=== PATIENT | female | born 2000 ===

== ENCOUNTER 2024-11-14 08:22 | Outpatient (CLI) | payer OTHER, SELFPAY ==
--- OUTSIDE RECORDS SUMMARY | 2024-11-14 08:27 | XMS_ITS ---
Author Organization [facility] Address [address] [place] [address] Care Team Providers Care Chha Name Role Phone Jorge Jesus Primary Care Provider Pascual Lang Unavailable [phone] Reason For Referral Reason IRON DEFICIENCY THAT DID NOT RESPOND TO PO IRON, NO HX OF BLEEDING, DID WELL WITH IRON INFUSIONS Diagnosis 1 Iron deficiency (E61 .1) Referral Organization [facility] Referring Provider First Name Pascual Referring Provider Last Name Mary Referring Provider Speciality Internal M edicine Referred Provider Specialty Hematology Referral Priority Routine REASON FOR VISIT 6 week f/u, last seen 10/04/24 Medications Medication SIG (Take, Route, Frequency, Duration) Notes Start Date End Date Status cloNIDine HCl 0.2 MG 1 tablet at bedtime Orally Once a day; Duration: 30 days Active busPIRone HCl 7.5 MG 1 tablet Orally Twi ce a day; Duration: 30 days Active DULoxetine HCl 30 MG 1 capsule Orally On ce a day; Duration: 30 days Active QUEtiapine Fumarate 150 MG 1 tablet at bedtime Orally Once a day; Duration: 30 days Active Pregabalin 75 MG 1 capsule Orally twi ce a day; Duration: 30 days 11/13/2024 Active traMADol HCl 50 MG 1 tablet as needed Orally Once a day; Duration: 6 days As needed severe pain, no more than one tab per day and 6 tabs per month 10/04/2024 Active Plaquenil 200 MG 1 tablet Orally twic e a day; Duration: 30 days Active Methocarbamol 500 MG 1.5 tablets Orally every 6 hours; Duration: 30 days As needed fibromyalgia Active predniSONE 2.5 MG 1 tablet with food o r milk Orally every other day; Duration: 30 days Active SEROquel 100 MG 1.5 tablet Orally On ce a day; Duration: 12 days Active Enbrel 50 MG/ML as directed Subcutaneous Not-Taking ARIPiprazole 10 MG TAKE 1 TABLET BY SIMA TH DAILY; Duration: 30 Active Social History Tobacco Use: Social History Observation Description Date Details (start date - stop date) Never Smoker NA - NA Sex Assigned At : Social History Observation Description Sex Assigned At Female Tobacco Control (Standard) Question Answer Notes Tobacco use: Nonsmoker Vital Signs Weight 219.4 lbs 11/13/2024 Height 67 in 11/13/2024 BMI 34.36 kg/m2 11/13/2024 Blood pressure systolic 138 mm Hg 11/14/19 25 Blood pressure diastolic 84 mm Hg 025 Heart Rate 111 /min 11/13/2024 Oximetry 99 % 11/13/2024 Temperature 98.4 degrees Fahrenheit 11/14/19 25 Respiratory Rate 20 /min 11/13/2024 Encounters Encounter Location Date Provider Diagnosis [place] [place] [place] [address] 11/13/2024 Pascual Lang Sleep apnea in adult G47.33 ; Iron deficiency E61.1 ; Fibromyalgia M79.7 ; Rheumatoid arthritis M06.9 ; Major depression F32.9 and Over weight E66.3 Assessments Encounter Date Diagnosis (ICD Code) Assessment Notes Treatment Notes Treatment Clinical Notes Section Notes 11/13/2024 Sleep apnea in adult (ICD-10 - G47.33) 11/13/2024 Iron deficiency (ICD-10 - E61.1) 11/13/2024 Fibromyalgia (ICD-10 - M79.7) DISCUSSED DIET, LOW IMPACT EXERCISE 11/13/2024 Rheumatoid arthritis (ICD-10 - M06.9) HX OF SERONEGATIVE DISEASE, RHEUM CONSULT PENDING, GAVE HER NUMBER TO CALL TODAY 11/13/2024 Major depression (ICD-10 - F32.9) 11/13/2024 Over weight (ICD-10 - E66.3) Plan Of Treatment Medication Medication Name Sig Start Date Stop Date Notes Pregabalin 75 MG 1 capsule Orally twi ce a day; Duration: 30 days 11/13/2024 Plaquenil 200 MG 1 tablet Orally twic e a day; Duration: 30 days Methocarbamol 500 MG 1.5 tablets Orally every 6 hours; Duration: 30 days predniSONE 2.5 MG 1 tablet with food o r milk Orally every other day; Duration: 30 days Future Test Test Name Order Date Celiac Antibodies tTG IgA, MATIAS IgA, Tota l IgA w/reflex to tTG IgG 01/14/2025 H. pylori Stool Ag, EIA 01/14/2025 Iron and TIBC* 01/14/2025 Ferritin, Serum* 01/14/2025 CMP 14 Comprehensive Metabolic Panel* Referrals Referral Date Details 11/13/2024 11/13/2024, IRON DEF ICIENCY THAT DID NOT RESPOND TO PO IRON, NO HX OF BLEEDING, DID WELL WITH IRON INFUSIONS Next Appt Details Follow Up: 2 Months, Reason: IRON, JEANINE, FM Progress Notes * Ximena LANGhDOB:[birth year] (24 yo F)Acc No.[id number]:11/13/2024 Progress Notes Patient: Miladys NARAYANANTanya Provider: Slava Lang :2000 A ge:24 Y S ex:Female(T) Date:11/13/2024 Address:[address] [place] [address] , [place] [address] Pcp:Jorge Jesus Subjective: * Chief Complaints: * 6 week f/u, last seen 10/04/24 * HPI: I nterim History: Emergency room visit N o. Was hospitalized N o. DISCUSSED LABS. HX IRON DEFICIENCY. NO RESPONSE TO ORAL IRON. DID WELL WITH IRON INFUSIONS. SLEEP STUDY SET FOR TOMORROW. NEVER GOT CALL FROM RHEUM. HX SERONEGATIVE RHEUMATOID ARTHRITIS. DISCUSSED THAT ALL MARKERS WERE WNL ON LABS. D epression Screening: PHQ-9 L ittle interest or pleasure in doing things?More than half the days F eeling down, depressed, or hopeless M ore than half the days T rouble falling or staying asleep, or sleeping too much M ore than half the days F eeling tired or having little energy N early every day P oor appetite or overeating S everal days F eeling bad about yourself or that you are a failure, or have let yourself or your family down N early every day T rouble concentrating on things, such as reading the newspaper or watching television M ore than half the days M oving or speaking so slowly that other people could have noticed; or the opposite, being so fidgety or restless that you have been moving around a lot more than usual S everal days T houghts that you would be better off or of hurting yourself in some way N ot at all Intervention D epression Screening Findings P ositive F ollow-Up for Depression P atient refused intervention P reventative Health and Wellness follow-up: Action Plans for Clinical Quality Measures: B reast Cancer Screening: N ot addressed during this visit. See notes for details. C ervical Cancer Screening: N ot addressed during this visit. See notes for details. C olorectal Cancer Screening: N ot addressed during this visit. See notes for details. H IV Screening: N ot addressed during this visit. See notes for details. T obacco Screening and Cessation: N ot addressed during this visit. See notes for details. . C SSRS Interpretation and Follow Up Plan: CSSRS Interpretation and Follow Up Plan C SSRS Screen documented using SF Y es R isk Disposition from SF L ow - No Follow Up Plan Required F ollow Up Plan N o Follow Up Plan required at this time. T imeframe of Screening T cesar * ROS: B asic ROS: Weight loss A dmits. * Medical History: * Surgical History: N o Surgical History documented. * Hospitalization/Major Diagno stic Procedure: M ental health as teen * Family History: F ather: alive. M other: alive. 1 brother(s) , 1 sister(s) . . * Social History: P rimary Social History: L iving Arrangement L iving Arrangement: I ndependent Living I s this a supportive environment? Y es Single Question Alcohol Screening H ow may times in the past year have you had (4 for women, or 5 for men) or more drinks in a day? 1 T obacco Use: T obacco Control (Standard) T obacco use: N onsmoker M iscellaneous: M ethod of learning P referred method of learning: R eading,Demonstration * Medications: T akingPregabalin 75 MG Capsule 1 capsule Orally twice a day Plaquenil 200 MG Tablet 1 tablet Orally twice a day predniSONE 2.5 MG Tablet 1 tablet with food or milk Orally every other day traMADol HCl 50 MG Tablet 1 tablet as needed Orally Once a day As needed severe pain, no more than one tab per day and 6 tabs per monthMethocarbamol 500 MG Tablet 1.5 tablets Orally every 6 hours As needed fibromyalgiaSEROquel 100 MG Tablet 1.5 tablet Orally Once a day QUEtiapine Fumarate 150 MG Tablet 1 tablet at bedtime Orally Once a day DULoxetine HCl 30 MG Capsule Delayed Release Particles 1 capsule Orally Once a day busPIRone HCl 7.5 MG Tablet 1 tablet Orally Twice a day cloNIDine HCl 0.2 MG Tablet 1 tablet at bedtime Orally Once a day ARIPiprazole 10 MG Tablet TAKE 1 TABLET BY MOUTH DAILY Taking Pregabalin 75 MG Capsule 1 capsule Orally twice a day Taking Plaquenil 200 MG Tablet 1 tablet Orally twice a day Taking predniSONE 2.5 MG Tablet 1 tablet with food or milk Orally every other day Taking traMADol HCl 50 MG Tablet 1 tablet as needed Orally Once a day As needed severe pain, no more than one tab per day and 6 tabs per monthTaking Methocarbamol 500 MG Tablet 1.5 tablets Orally every 6 hours As needed fibromyalgiaTaking SEROquel 100 MG Tablet 1.5 tablet Orally Once a day Taking QUEtiapine Fumarate 150 MG Tablet 1 tablet at bedtime Orally Once a day Taking DULoxetine HCl 30 MG Capsule Delayed Release Particles 1 capsule Orally Once a day Taking busPIRone HCl 7.5 MG Tablet 1 tablet Orally Twice a day Taking cloNIDine HCl 0.2 MG Tablet 1 tablet at bedtime Orally Once a day Taking ARIPiprazole 10 MG Tablet TAKE 1 TABLET BY MOUTH DAILY Not- TakingEnbrel 50 MG/ML Solution Prefilled Syringe as directed Subcutaneous Medication List reviewed and reconciled with the patientNot-Taking Enbrel 50 MG/ML Solution Prefilled Syringe as directed Subcutaneous Medication List reviewed and reconciled with the patient * Allergies: n o[Allergies Verified] Objective: * Vitals: I nitials: HM, Wt:219.4, Ht: 67, BMI:34.36, BP:138/84, HR:111, Oxygen sat %:99, Temp:98.4, RR:20, Pain scale:4. * Examination: G eneral Examination: GENERAL APPEARANCE: w ell developed, well nourished, in no acute distress. Assessment: * Assessment: 1. I melvin deficiency - E61.1 (Primary) 2 . S leep apnea in adult - G47.33? 3. F ibromyalgia - M79.7 4 . R heumatoid arthritis - M06.9? 5. M ajor depression - F32.9 6 . O deysi weight - E66.3 ? Plan: * Treatment: 2. F ibromyalgia Refill Pregabalin Capsule, 75 MG, 1 capsule, Orally, twice a day, 30 days, 60 Capsule, Refills 1;?Refill Methocarbamol Tablet, 500 MG, 1.5 tablets, Orally, every 6 hours As needed fibromyalgia, 30 days, 180 Tablet, Refills 1. Clinical Notes: DISCUSSED DIET, LOW IMPACT EXERCISE 3. R heumatoid arthritis Refill predniSONE Tablet, 2.5 MG, 1 tablet with food or milk, Orally, every other day, 30 days, 15, Refills 1; R efill Plaquenil Tablet, 200 MG, 1 tablet, Orally, twice a day, 30 days, 60 Tablet, Refills 1. L AB: CMP 14 Comprehensive Metabolic Panel* (Ordered for 01/14/2025) Clinical Notes: HX OF SERONEGATIVE DISEASE, RHEUM CONSULT PENDING, GAVE HER NUMBER TO CALL TODAY? * Recommended Wellness and Pre vention Guidelines: * S tatus A lert L ast Done N ext Due A ction Taken N ONCOMPLIANT A lcohol use screening - 0 11/13/2024 - - N ONCOMPLIANT C ervical cancer screening - 0 11/13/2024 - - * Procedure Codes: 3 008F BODY MASS INDEX DOCD * Preventive Medicine: Counseling: S MOKING: Patient counselled on the dangers of tobacco use and urged to quit. . C are goal follow-up plan: BMI management provided Y es Above Normal BMI Follow-up L ifestyle education regarding diet * Follow Up: 2 Months (Reason: IRON, JEANINE, FM) * * Sign off status: Completed true * Provider: Slava Lang Date: 11/13/2024 Generated for Quique negron/Kasia/Felicitas on: 11/14/2024 08:27 AM CDT History and Physical Notes * HPI (History of Present Illness) Category Sub-Category Detail Notes Category Not es Interim History Was hospitalized No DISCUSSE D LABS. HX IRON DEFICIENCY. NO RESPONSE TO ORAL IRON. DID WELL WITH IRON INFUSIONS. SLEEP STUDY SET FOR TOMORROW. NEVER GOT CALL FROM RHEUM. HX SERONEGATIVE RHEUMATOID ARTHRITIS. DISCUSSED THAT ALL MARKERS WERE WNL ON LABS. Emergency room visit No Depression Screening PHQ-9 Little inte rest or pleasure in doing things: More than half the days Feeling down, depressed, or hopeless: Mo re than half the days Trouble falling or staying a sleep, or sleeping too much: More than half the days Feeling tired or having little energy: N early every day Poor appetite or overeating: Several day s Feeling bad about yourself o r that you are a failure, or have let yourself or your family down: Nearly every day Trouble concentrating on thi ngs, such as reading the newspaper or watching television: More than half the days Moving or speaking so slowly that other people could have noticed; or the opposite, being so fidgety or restless that you have been moving around a lot more than usual: Several days Thoughts that you would be b miguel off or of hurting yourself in some way: Not at all Intervention Depression Screening Findings: P ositive Follow-Up for Depression: Patient refuse d intervention Preventative Health and Wellness follow-up Action Plans for Clinical Quality Measures: Breast Cancer Screening:: Not addressed during this visit. See notes for details. . Cervical Cancer Screening:: Not addressed during this visit. See notes for details. Colorectal Cancer Screening: : Not addressed during this visit. See notes for details. HIV Screening:: Not addressed during thi s visit. See notes for details. Tobacco Screening and Cessat ion:: Not addressed during this visit. See notes for details. CSSRS Interpretation and Follow Up Plan CSSRS Interpretation and Follow Up Plan CSSRS Screen documented using SF: Yes Risk Disposition from SF: Low - No Follo w Up Plan Required Follow Up Plan: No Follow Up Plan requir ed at this time. Timeframe of Screening: Today Examination Category Sub-Category Detail Notes Category Not es General Examination GENERAL APPEARANCE: well dev eloped, well nourished, in no acute distress Consultation Request Notes Referral Date Referring Provider Referred Provider Not es 11/13/2024 Pascual Lang , IRON DEFICIENC Y THAT DID NOT RESPOND TO PO IRON, NO HX OF BLEEDING, DID WELL WITH IRON INFUSIONS
--- OUTSIDE RECORDS SUMMARY | 2024-11-14 08:27 | XMS_ITS | Patient Health Record ---
Author Organization [facility] Address [address] [place] [address] Care Team Providers Care 3D Designer Name Role Phone Jorge Jesus Primary Care Provider Pascual Hernandez Unavailable [phone] Iván Parada Unavailable Allergies No Known Allergies Results Component Value Reference Range Notes Hemoglobin A1c* Reviewed date:10/12/2024 01:10:47 PM Interpretation: Performing Lab:[employer], [address] [facility], Phone - [phone], Director - [facility] Hospital[facility]bin Notes/Report: Hemoglobin A1c 5.6 4.8-5.6 % . Prediabetes: 5.7 - 6.4 Diabetes: >6.4 Glycemic control for adults with diabetes: <7.0 Lipid Panel* Reviewed date:10/12/2024 01:10:47 PM Interpretation: Performing Lab:[facility], Phone - [phone], Director - Ph[facility]merson Hospitalbrittanyi Notes/Report: Cholesterol, Total 219 100-199 mg/dL Triglycerides 142 0-149 mg/dL HDL Cholesterol 64 >39 mg/dL VLDL Cholesterol Oscar 25 5-40 mg/dL LDL Chol Calc (NIH) 130 0-99 mg/dL Rapid Plasma Reagin (RPR) Te st With Reflex to Quantitative RPR and Confirmatory Treponema pallidum Antibodies Reviewed date:10/12/2024 01:10:47 PM Interpretation: Performing Lab:[facility] [facility], [place], Phone - [phone], Director - PhDSudhakari Notes/Report: RPR Non Reactive Non Reactive Interpretation: Syphilis: RPR with Reflex to RPR Titer and Treponemal Antibodies, Traditional Screening and Diagnosis Algorithm Treponemal RPR RPR, Qn Ab Final Interpretation -------- --------- Non N/A N/A No laboratory evidence Reactive of syphilis. Retest in 2-4 weeks if recent exposure us suspected. -------- --------- Reactive >/=1:1 Non Nontreponemal antibodies Reactive detected. Syphilis unlikely; biological false positive possible. Retest in 2-4 weeks if recent exposure is suspected. -------- --------- Reactive >/=1:1 Reactive Treponemal and nontreponemal antibodies detected. Consistent with past or current (potential early) syphilis. HIV Screen *HIV 1, 2 Ab, p24 Ag ([id number]) Reviewed date:10/12/2024 01:10:47 PM Interpretation: Performing Lab:[facility] [place], [address] [facility], Phone - [phone], Director - Maximo Notes/Report: HIV Ab/p24 Ag Screen Non Reactive Non Reactive HIV-1/HIV-2 antibodies and HIV-1 p24 antigen were NOT detected. There is no laboratory evidence of HIV infection. HIV Negative Hepatitis C Virus Antibody w /Rflx to Quantitative Real-time PCR ([id number]) Reviewed date:10/12/2024 01:10:47 PM Interpretation: Performing Lab:[facility] [place], [address] [place] [address], Phone - [phone], Director [facility] Notes/Report: HCV Ab Reactive Non Reactive Hepatitis C Quantitation HCV Not Detected Test Information: The quanti tative range of this assay is 15 IU/mL to 100 million IU/mL. Interpretation: Positive HCV antibody screen without the presence of HCV RNA is consistent with a resolved past infection or a false positive HCV antibody. Consider repeat testing after one month. Hepatitis B Surface Antigen (HBsAg Screen) Reviewed date:10/12/2024 01:10:47 PM Interpretation: Performing Lab:[address], Phone - [phone], Director - [facility] Notes/Report: HBsAg Screen Negative Negative Vitamin B12 and Folate Reviewed date:10/12/2024 01:10:47 PM Interpretation: Performing Lab:[address], Phone - [phone], [facility] Notes/Report: Vitamin B12 638 433-8966 pg/mL Folate (Folic Acid), Serum 10.4 >3.0 ng/mL A serum folate concentration of less than 3.1 ng/mL is considered to represent clinical deficiency. Iron and TIBC* Reviewed date:10/12/2024 01:10:47 PM Interpretation: Performing Lab:[address], Phone - [phone], [facility] Notes/Report: Iron Bind.Cap.(TIBC) 538 250-450 ug/dL UIBC 509 131-425 ug/dL Iron 29 27-159 ug/dL Iron Saturation 5 15-55 % Rheumatoid Arthritis Factor Reviewed date:10/12/2024 01:10:47 PM Interpretation: Performing Lab:[address], Phone - [phone], [facility] - [facility] Notes/Report: Rheumatoid Factor (RF) <10.0 <14.0 IU/mL C-Reactive Protein, Quant Reviewed date:10/12/2024 01:10:47 PM Interpretation: Performing Lab:[address], Phone - [phone], [facility] Notes/Report: C-Reactive Protein, Quant 3 0-10 mg/L 14 Panel Urine Drug Screen Reviewed date:10/04/2024 03:23:13 PM Interpretation: Performing Lab: Notes/Report: THC POS DIANE neg MOP (OPI) neg AMP neg MET neg BAR neg BZO neg MDMA neg MTD neg OXY neg PCP nweg BUP neg TCA neg FTY neg CMP 14 Comprehensive Metabol ic Panel* Reviewed date:10/12/2024 01:10:47 PM Interpretation: Performing Lab:[facility], [address] [facility], Phone - [phone], Director - [facility] Notes/Report: Glucose 104 70-99 mg/dL BUN 17 6-20 mg/dL Creatinine 0.79 0.57-1.00 mg/dL eGFR 108 >59 mL/min/1.73 BUN/Creatinine Ratio 22 9-23 Sodium 141 134-144 mmol/L Potassium 4.2 3.5-5.2 mmol/L Chloride 104 96-106 mmol/L Carbon Dioxide, Total 19 20-29 mmol/L Calcium 10.1 8.7-10.2 mg/dL Protein, Total 7.4 6.0-8.5 g/dL Albumin 4.7 4.0-5.0 g/dL Globulin, Total 2.7 1.5-4.5 g/dL Bilirubin, Total 0.6 0.0-1.2 mg/dL Alkaline Phosphatase 81 44-121 IU/L AST (SGOT) 25 0-40 IU/L ALT (SGPT) 27 0-32 IU/L CBC With Differential/Platel et* Reviewed date:10/12/2024 01:10:47 PM Interpretation: Performing Lab:[facility] [place], [address] [facility], Phone - [phone], Director - [facility] Notes/Report: WBC 9.2 3.4-10.8 x10E3/uL RBC 5.34 3.77-5.28 x10E6/uL Hemoglobin 12.7 11.1-15.9 g/dL Hematocrit 42.2 34.0-46.6 % MCV 79 79-97 fL MCH 23.8 26.6-33.0 pg MCHC 30.1 31.5-35.7 g/dL RDW 15.5 11.7-15.4 % Platelets 499 150-450 x10E3/uL Neutrophils 78 Not Estab. % Lymphs 16 Not Estab. % Monocytes 4 Not Estab. % Eos 1 Not Estab. % Basos 1 Not Estab. % Neutrophils (Absolute) 7.1 1.4-7.0 x10E3/uL Lymphs (Absolute) 1.5 0.7-3.1 x10E3/uL Monocytes(Absolute) 0.4 0.1-0.9 x10E3/uL Eos (Absolute) 0.1 0.0-0.4 x10E3/uL Baso (Absolute) 0.1 0.0-0.2 x10E3/uL Immature Granulocytes 0 Not Estab. % Immature Grans (Abs) 0.0 0.0-0.1 x10E3/uL TSH Rfx on Abnormal to Free T4 Reviewed date:10/12/2024 01:10:47 PM Interpretation: Performing Lab:[facility], Phone - [phone], Director - [facility] Notes/Report: TSH 1.510 0.450-4.500 uIU/mL NATE by IFA, Reflex to 9-biom arkers profile, Serum Reviewed date:10/12/2024 01:10:47 PM Interpretation: Performing Lab:[facility], Phone - [phone], Director - [facility] Notes/Report: NATE by IFA Rfx Titer/Pattern Negative Negative <1:80 Borderline 1:80 Positive >1:80 ICAP nomenclature: AC-0 For more information about Hep-2 cell patterns use ANApatterns.org, the official website for the International Consensus on Antinuclear Antibody (NATE) Patterns (ICAP). Please Note: NATE Multiplex methodology was designed to detect up to 11 antibodies of the 100+ antibodies that may be detected by NATE IFA methodology. Anti-CCP (Cyclic Citrullinat ed Peptide Antibodies, IgG and IgA, MALLY Reviewed date:10/12/2024 01:10:47 PM Interpretation: Performing Lab:[facility] [facility], Phone - [phone], Director - [facility] Notes/Report: Anti-CCP Ab, IgG/IgA 14 0-19 units Negative <20 Weak positive 20 - 39 Moderate positive 40 - 59 Strong positive >59 Reason For Referral Reason HX OF RA ON ENBREL Diagnosis 1 Rheumatoid arthritis (M06.9) Referral Organization [facility] Referring Provider First Name Pascual Referring Provider Last Name Mary Referring Provider Speciality Internal edicine Referred Provider Specialty Rheumatology General Notes Tamara Betts RN 05/2024 01:54:17 PM >referral sent, Steven Clementina Oscar 11/13/2024 03:23:21 PM >Printed & given to client while in office seeing MD Hernandez. Client aware to call back if having any issues scheduling. Clinical Notes Dr Jerzy Ambrosio, [address] [facility] [address], Referral Priority Routine Reason [place] score 17, HO ME SLEEP STUDY WITH REFLEX TO SPLIT NIGHT PSG IF ABNL Diagnosis 1 Sleep apnea in adult (G47.33) Referral Organization [facility] Referring Provider First Name Pascual Referring Provider Last Name Mary [facility] Referred Provider Specialty Sleep Medici ne General Notes Tamara Betts RN 05/2024 09:55:15 AM >client notified by text and letter Clinical Notes [facility] , [address] [facility] , Referral Priority Routine Reason IRON DEFICIENCY THAT DID NOT RESPOND TO PO IRON, NO HX OF BLEEDING, DID WELL WITH IRON INFUSIONS Diagnosis 1 Iron deficiency (E61 .1) Referral Organization [facility] Referring Provider First Name Pascual Referring Provider Last Name Mary Referring Provider [facility] Referred Provider Specialty Hematology Referral Priority Routine Medications Medication SIG (Take, Route, Frequency, Duration) Notes Start Date End Date Status traMADol HCl 50 MG 1 tablet as needed Orally Once a day; Duration: 6 days As needed severe pain, no more than one tab per day and 6 tabs per month 10/04/2024 Active cloNIDine HCl 0.2 MG 1 tablet at bedtime Orally Once a day; Duration: 30 days Active busPIRone HCl 7.5 MG 1 tablet Orally Twi ce a day; Duration: 30 days Active Plaquenil 200 MG 1 tablet Orally twic e a day; Duration: 30 days Active DULoxetine HCl 30 MG 1 capsule Orally On ce a day; Duration: 30 days Active Methocarbamol 500 MG 1.5 tablets Orally every 6 hours; Duration: 30 days As needed fibromyalgia Active Enbrel 50 MG/ML as directed Subcutaneous Not-Taking predniSONE 2.5 MG 1 tablet with food o r milk Orally every other day; Duration: 30 days Active ARIPiprazole 10 MG TAKE 1 TABLET BY SIMA TH DAILY; Duration: 30 Active QUEtiapine Fumarate 150 MG 1 tablet at bedtime Orally Once a day; Duration: 30 days Active Pregabalin 75 MG 1 capsule Orally twi ce a day; Duration: 30 days 11/13/2024 Active SEROquel 100 MG 1.5 tablet Orally On ce a day; Duration: 12 days Active Social History Tobacco Use: Social History Observation Description Date Details (start date - stop date) Never Smoker NA - NA Sex Assigned At : Social History Observation Description Sex Assigned At Female Tobacco Control (Standard) Question Answer Notes Tobacco use: Nonsmoker Problems Problem Type SNOMED Code ICD Code Onset Dates Problem Status W/U Status Risk Notes Problem Fibromyalgia (958712933) Fibromyalgia (M79.7) Active confirmed Problem Major depression (579702291) Major depression (F32.9) Active confirmed Problem Posttraumatic stress disorder (20855152) PTSD (post-traumatic stress disorder) (F43.10) Active confirmed Problem Generalized anxiety disorder (14091218) JOSUE (generalized anxiety disorder) (F41.1) Active confirmed Problem Overweight (712262281) Over weight (E66.3) Active confirmed Problem Rheumatoid arthritis (25446926) Rheumatoid arthritis (M06.9) Active confirmed Problem Obstructive sleep apnea syndrome (58757703) Sleep apnea in adult (G47.33) Active confirmed Problem Chronic fatigue syndrome (29195180) Chronic fatigue (R53.82) Active confirmed Vital Signs Heart Rate 111 /min 11/13/2024 Temperature 98.4 degrees Fahrenheit 11/13/2024 Respiratory Rate 20 /min 11/13/2024 Blood pressure diastolic 84 mm Hg 11/13/2024 Oximetry 99 % 11/13/2024 Height 67 in 11/13/2024 Blood pressure systolic 138 mm Hg 11/13/2024 Weight 219.4 lbs 11/13/2024 BMI 34.36 kg/m2 11/13/2024 Encounters Encounter Location Date Provider Diagnosis [address] [place] [address] 10/04/2024 Pascual Hernandez [address] [place] [address] 07/25/2024 Jorge Jesus Major depression F32.9 ; JOSUE (generalized anxiety disorder) F41.1 ; PTSD (post-traumatic stress disorder) F43.10 and Rheumatoid arthritis M06.[address] [place] [address] 10/04/2024 Pascual Hernandez Rheumatoid arthritis M06.9 ; Chronic fatigue R53.82 ; Fibromyalgia M79.7 ; Sleep apnea in adult G47.33 ; Over weight E66.3 ; Exposure to potential infection Z20.9 ; Lipid screening Z13.220 ; Screening for diabetes mellitus Z13.1 and Opioid use F11.[address] [address] 10/04/2024 Iván Parada [address] [address] 10/17/2024 Jorge Jesus Major depression F32.9 ; JOSUE (generalized anxiety disorder) F41.1 and PTSD (post-traumatic stress disorder) F43.10 [place] [address] [facility] [place] [address] 11/13/2024 Pascual Hernandez Sleep apnea in adult G47.33 ; Iron deficiency E61.1 ; Fibromyalgia M79.7 ; Rheumatoid arthritis M06.9 ; Major depression F32.9 and Over weight E66.[address], [place] [address] 10/06/2024 Jorge Jesus Major depression F32.9 ; JOSUE (generalized anxiety disorder) F41.1 and PTSD (post-traumatic stress disorder) F43.10 Assessments Encounter Date Diagnosis (ICD Code) Assessment Notes Treatment Notes Treatment Clinical Notes Section Notes 07/25/2024 Major depression (ICD-10 - F32.9) Client establishing care with mental health provider after moving from [place]. Hx of severe depression, gender dysphoria, PTSD, OCD and medical comorbidities of fibromyalgia and RA. Client very worried about staying on mental health treatment plan and RA treatment plan while establishing insurance coverage. Sent in curtesy refill for RA tx plan. Client states stable on mental health medications, will keep unchanged. 07/25/2024 JOSUE (generalized anxiety disorder) (ICD-10 - F41.1) Client establishing care with mental health provider after moving from [place]. Hx of severe depression, gender dysphoria, PTSD, OCD and medical comorbidities of fibromyalgia and RA. Client very worried about staying on mental health treatment plan and RA treatment plan while establishing insurance coverage. Sent in curtesy refill for RA tx plan. Client states stable on mental health medications, will keep unchanged. 10/04/2024 Rheumatoid arthritis (ICD-10 - M06.9) 10/04/2024 Chronic fatigue (ICD-10 - R53.82) 10/06/2024 Major depression (ICD-10 - F32.9) 10/17/2024 Major depression (ICD-10 - F32.9) Client doing well overall and requests no changes to current mental health medications. 11/13/2024 Iron deficiency (ICD-10 - E61.1) 11/13/2024 Sleep apnea in adult (ICD-10 - G47.33) 10/06/2024 JOSUE (generalized anxiety disorder) (ICD-10 - F41.1) 10/17/2024 JOSUE (generalized anxiety disorder) (ICD-10 - F41.1) Client doing well overall and requests no changes to current mental health medications. 11/13/2024 Fibromyalgia (ICD-10 - M79.7) DISCUSSED DIET, LOW IMPACT EXERCISE 10/04/2024 Fibromyalgia (ICD-10 - M79.7) 07/25/2024 PTSD (post-traumatic stress disorder) (ICD-10 - F43.10) Client establishing care with mental health provider after moving from [place]. Hx of severe depression, gender dysphoria, PTSD, OCD and medical comorbidities of fibromyalgia and RA. Client very worried about staying on mental health treatment plan and RA treatment plan while establishing insurance coverage. Sent in curtesy refill for RA tx plan. Client states stable on mental health medications, will keep unchanged. 07/25/2024 Rheumatoid arthritis (ICD-10 - M06.9) Client establishing care with mental health provider after moving from [place]. Hx of severe depression, gender dysphoria, PTSD, OCD and medical comorbidities of fibromyalgia and RA. Client very worried about staying on mental health treatment plan and RA treatment plan while establishing insurance coverage. Sent in curtesy refill for RA tx plan. Client states stable on mental health medications, will keep unchanged. 10/04/2024 Sleep apnea in adult (ICD-10 - G47.33) 10/17/2024 PTSD (post-traumatic stress disorder) (ICD-10 - F43.10) Client doing well overall and requests no changes to current mental health medications. 10/06/2024 PTSD (post-traumatic stress disorder) (ICD-10 - F43.10) 11/13/2024 Rheumatoid arthritis (ICD-10 - M06.9) HX OF SERONEGATIVE DISEASE, RHEUM CONSULT PENDING, GAVE HER NUMBER TO CALL TODAY 11/13/2024 Major depression (ICD-10 - F32.9) 10/04/2024 Over weight (ICD-10 - E66.3) 10/04/2024 Exposure to potential infection (ICD-10 - Z20.9) 11/13/2024 Over weight (ICD-10 - E66.3) 10/04/2024 Lipid screening (ICD-10 - Z13.220) 10/04/2024 Screening for diabetes mellitus (ICD-10 - Z13.1) 10/04/2024 Opioid use (ICD-10 - F11.90) [place]25/[place]24 [place] part of monitoring [place] and unable to check. Discussed sleep hygiene and caffeine intake with encouragement to limit electronic devices an hour before bed and to limit caffeine after 3:00pm. Exercise benefits for mood and health discussed. Psychoeducation regarding psychiatric illness provided. Client was educated about risks and benefits of medication, alternatives to medication, off label uses of medication, suicidal ideation with SSRIs, self-administrati on and compliance with medication along with how to safely store medication. Verbal informed consent obtained. Client agrees to return sooner if symptoms worsen or if suicidal or homicidal ideations occur. Client has the phone number to the 24-hour crisis line at [facility]. Questions addressed. Client verbalized understanding of all information and is agreeable to treatment plan. Client establishing care with mental health provider after moving from [place]. Hx of severe depression, gender dysphoria, PTSD, OCD and medical comorbidities of fibromyalgia and RA. Client very worried about staying on mental health treatment plan and RA treatment plan while establishing insurance coverage. Sent in curtesy refill for RA tx plan. Client states stable on mental health medications, will keep unchanged. 10/04/2024 Other RUBIA SIGNED FOR RHEUM AND PM FROM [place] 10/04/2024 Other Collar Worker met with Tanya Hernandez to assist in working on building skills to help the consumer gain confidence in their independent living skills. The publications writer practiced with Tanya Hernandez implementing problem solving skills (making lists, going on walks, and reaching out to support network for guidance) to help facilitate exploration of options pertaining to selfcare and mental health healing. 10/17/2024 Other Discussed sleep hygiene and caffeine intake with encouragement to limit electronic devices an hour before bed and to limit caffeine after 3:00pm. Exercise benefits for mood and health discussed. Psychoeducation regarding psychiatric illness provided. Client was educated about risks and benefits of medication, alternatives to medication, off label uses of medication, suicidal ideation with SSRIs, self-administrati on and compliance with medication along with how to safely store medication. Verbal informed consent obtained. Client agrees to return sooner if symptoms worsen or if suicidal or homicidal ideations occur. Client has the phone number to the 24-hour crisis line at [facility]. Questions addressed. Client verbalized understanding of all information and is agreeable to treatment plan. Client doing well overall and requests no changes to current mental health medications. Plan Of Treatment Future Test Test Name Order Date Xray : Hands, bilateral 2 views 10/05/19 25 Insurance Providers Payer Name Payer Address Payer Phone Subscriber Number Group Number Insured Name Patient Relationship to Insured Coverage Start Date Coverage End Date MEDICAID [address] [place] [address] [id number] Tanya Hernandez Self - patient is the insured 5 5 [facility] Attn Claims Department [address] [place] [address] [phone] [id number] Tanya Hernandez Self - patient is the insured 5 [facility] Attn Claims Department [address] [place] [address] [phone] [id number] Tanya Hernandez Self - patient is the insured 5 Medical (General) History Hospitalization History Reason Date(Month/Year) Mental health as teen
--- NOTE | 2024-12-06 15:42 | P.SLEEP_ITS ---
Sleep Study - Home Unattended Date of Study: 11/14/24 Ordering Provider: Pascual Hernandez MD Interpreting Provider: Dhara Melara, DO Home Sleep Study Type: Watch PAT Height: 1.7 m Weight: 99.79 kg Body Mass Index: 34.4 Neck Circumference (inches): 14.5 [place]: 7 Reason for Sleep Study Excessive daytime sleepiness Sleep History The patient is a 24-year-old female who had a sleep study ordered by her primary care physician for evaluation of sleep apnea. The patient admits to excessive daytime sleepiness, trouble breathing or interruptions in breathing while asleep, and trouble falling asleep. She does snore loudly. She denies choking or gasping at night. She does have trouble breathing on her back. She denies morning headaches. She does have a dry or sore mouth/throat in the morning. She denies nocturnal heartburn. She denies nocturia. She does have difficulty staying asleep and difficulty returning to sleep if she wakes up throughout the night. She does use hypnotics or sedatives. She feels anxious about sleep, feels tired or sleepy during the day, feels tired in the morning, and has the urge to fall asleep during the day. She denies feeling drowsy while driving. She denies sleep paralysis, cataplexy, and hypnagogic/hypnopompic hallucinations. She does clench or grind her teeth. She denies kicking or jerking her legs excessively and denies having a restless feeling in her legs. She goes to bed at 11:30 p.m. on workdays and at 12:15 a.m. on her days off. It takes her 30 minutes to fall asleep. She gets 12 hours of sleep on workdays and 13 hours on her days off. Her sleep is a little more restorative on her days off. She denies taking any planned naps. She denies dream enactment behavior and sleepwalking. She denies consuming any caffeinated beverages throughout the day. She denies tobacco and alcohol use. She denies exercising on a regular basis. Sleep Procedure The sleep study was completed using WatchPAT a technically adequate device with seven channels: peripheral arterial tone, actigraphy, body position, snore, respiratory movement, pulse oximetry, sleep staging, and heart rate. Prior to using the device, the patient received verbal and written instructions for its application and was provided with the help desk phone number for additional telephonic instruction with 24-hour availability of qualified personnel to an swer questions. The study was scored using CMS guidelines. Sleep Architecture The total recording time is 9 hrs, 0 min. The total sleep time is 7 hrs, 3 min. Sleep latency is 84 minutes. REM latency is 59 minutes. The patient had 6 episodes of waking. Sleep architecture shows 12.3% deep sleep, 63.6% light sleep, and (as % Total Sleep Time) showed NREM (Light 63.6%; Deep 12.3%), and a 24.1% stage REM. The patient spent 50.8% of total sleep time in the supine position. Sleep efficiency was 78.33. Respiratory Analysis The overall AHI (pAHI 4%:) is 5.0. The overall AHI (pAHI 3%:) is 11.3. The central AHI is 0.4. The AHI was 11.6 in NREM and 10.2 in REM sleep. The AHI was 14.0 in Supine and 8.4 in Non-supine sleep. Percent of Brigido Lange respirations is 0.0. Oximetry Data The oxygen desaturation index (JOANNE 4%:) is 3.9. The mean saturation is 95%, and the lowest saturation is 92%. Time spent with saturation < 88% is 0.0 minutes. Snoring Profile Snoring average intensity is 42 dB. The patient snored above 45 decibels for 47.1 minutes, 11.1% of sleep time. Cardiac Profile The average pulse rate is 66 beats per minutes. The lowest pulse rate is 44 bpm. The highest pulse rate reported is 120 bpm. Atria fibrillation was not suspected. Premature beats occur 0.3 per minute. Assessment and Plan Assessment and Plan (1) JEANINE (obstructive sleep apnea): Code(s): G47.33 - Obstructive sleep apnea (adult) (pediatric) Status: Acute Assessment and Plan: The patient had an overall AHI of 5.0 with desaturation down to 92%. This is consistent with mild sleep apnea. Due to the patient's sleep onset insomnia, she qualifies for treatment. I recommend that the patient be prescribed AutoPAP 5-15 cm H2O, CPAP mask/filters/tubing and heated humidity. A mandibular advancement device is also an acceptable treatment option. This should be used with all episodes of sleep.? Compliance should be reviewed within 31-90 days of starting therapy for usage greater than 4 hours per night greater than 70% of the nights. The patient should be asked about symptoms such as?excessive daytime sleepiness, quality of sleep, decreased nocturia, increased?mental functioning such as memory, mood, and concentration. Data The data obtained during this sleep study is adequate for interpretation. Certification This sleep study has been reviewed by a board certified sleep medicine kassandra osman.
[2024-12-06 15:47] VITALS: BMI 34.4
== END 2024-11-16 11:38 | disposition home or self-care (01) ==
LOC: ANHCSM 08:24
PROVIDERS: Visit Provider Internal Medicine
DX: G47.33 Obstructive sleep apnea (adult) (pediatric) (principal)
CPT/HCPCS: 95800